=== PATIENT | male | born 1950 | race Caucasian/White ===

== ENCOUNTER 2017-07-24 08:54 | Emergency (ER) | payer BC ==
--- NOTE | 2017-07-24 11:06 | UC ---
Shoulder Pain HPI - HPI Summary HPI Summary: 67 y/o male presents to the urgent care c/o Pt states slipped on ice and fell on R shoulder last Tuesday07/17/17. Pt now here with pain in R neck/ shoulder area. - History of Current Complaint Chief Complaint: UCBackPain Stated Complaint: BACK INJURY Time Seen by Provider: 07/24/17 10:36 Pain Intensity: 8 - Allergies/Home Medications Allergies/Adverse Reactions: Allergies Allergy/AdvReac Type Severity Reaction Status Date / Time No Known Allergies Allergy Verified 07/24/17 09:16 PMH/Surg Hx/FS Hx/Imm Hx - Surgical History Surgical History: Yes Surgery Procedure, Year, and Place: Removal of 3 herniated discs and fusion. left tendon repair - Family History Known Family History: Positive: Hypertension - Social History Alcohol Use: Weekly Alcohol Amount: 3 beers/week Substance Use Type: None Smoking Status (MU): Never Smoked Tobacco Have You Smoked in the Last Year: No Physical Exam Vital Signs: Initial Vital Signs Temp 97.9 F 07/24/17 09:17 Pulse 61 07/24/17 09:17 Resp 16 07/24/17 09:17 BP 139/96 07/24/17 09:17 Pulse Ox 98 07/24/17 09:17 Shoulder Course/Dx - Differential Dx/Diagnosis Provider Diagnoses: 1- Acute shoulder pain s/p fall Discharge - Discharge Plan Referrals: Rafael Cruran MD [Primary Care Provider] -
--- NOTE | 2017-07-24 11:17 | RAD ---
INDICATION: Right shoulder pain. Fall. COMPARISON: None TECHNIQUE: Routine frontal, Y and axial views were obtained. FINDINGS: There are no acute bony findings. The glenohumeral joint is intact. There is moderate AC joint osteoarthritis. There are subtle findings of calcific tendinitis.. IMPRESSION: NO ACUTE BONY FINDINGS. AC JOINT OSTEOARTHRITIS. CALCIFIC TENDINITIS.
--- NOTE | 2017-07-24 11:18 | RAD ---
INDICATION: Right rib pain. Fall COMPARISON: None TECHNIQUE: Multiple views of the ribs were obtained. FINDINGS: Bones: There is no evidence of acute rib fracture. LUNGS: The lungs are clear. There is no pneumothorax. Pleural spaces: There is no evidence of hemothorax. Other: None IMPRESSION: NO ACUTE RIB FRACTURE.
[2017-07-24 11:21] VITALS: BP 142/80
== END 2017-07-24 11:40 | disposition home or self-care (01) ==
LOC: UCEAST 08:54
DX: M25.511 Pain in right shoulder (principal); W00.0XXA Fall on same level due to ice and snow, initial encounter; Y92.9 Unspecified place or not applicable
CPT/HCPCS: 99212; G0463

== ENCOUNTER 2018-02-22 12:00 | Emergency (ER) | payer BC ==
--- NOTE | 2018-02-22 12:22 | UC ---
Upper Extremity HPI - HPI Summary HPI Summary: A 67 y/o M presents to [facility] with c/o worsening LUE pain onset in October. Pain is located at his L shoulder and L elbow. In October, he was doing yard work and fell onto his back. He states his LUE was black and blue after that fall, but he didn t seek medical attention at that time. Associated sx: mild swelling to LUE. - History of Current Complaint Stated Complaint: L SHOULDER PAIN Time Seen by Provider: 02/22/18 12:15 Hx Obtained From: Patient Onset/Duration: Gradual Onset, Lasting Weeks, Still Present Severity Initially: Moderate Severity Currently: Moderate Pain Intensity: 7 Pain Scale Used: 0-10 Numeric Aggravating Factor(s): Movement Associated Signs And Symptoms: Positive: Swelling - LUE - Allergies/Home Medications Allergies/Adverse Reactions: Allergies Allergy/AdvReac Type Severity Reaction Status Date / Time No Known Allergies Allergy Verified 02/22/18 12:30 PMH/Surg Hx/FS Hx/Imm Hx Previously Healthy: No - pos: back pain Cardiovascular History: Hypertension, Atrial Fibrillation Other Neurological History: neg: dementia - Surgical History Surgical History: Yes Surgery Procedure, Year, and Place: Removal of 3 herniated discs and fusion. left tendon repair - Family History Known Family History: Positive: Hypertension, Diabetes Family History: Breast cancer - Social History Occupation: Retired Lives: Dormitory/Roommates - girlfriend Alcohol Use: Weekly Alcohol Amount: 3 beers/week Substance Use Type: None Smoking Status (MU): Never Smoked Tobacco Have You Smoked in the Last Year: No Review of Systems Constitutional: Other - neg: fever Musculoskeletal: Edema - mild, LUE, Other: - pos: L shoulder pain, L elbow pain All Other Systems Reviewed And Are Negative: Yes Physical Exam - Summary Physical Exam Summary: General: well-appearing, no pain distress Skin: warm, color reflects adequate perfusion, dry Head: normal Eyes: EOMI, SHERLYN ENT: normal Neck: supple, nontender Respiratory: CTA, breath sounds present Cardiovascular: RRR Abdomen: soft, nontender Bowel: present Musculoskeletal: Tender to palpation on upper margin of L scapula, swelling in L deltoid, tender to palpation of L humerus. Fingers, hands, wrists and elbows have FROM, strength, pulses and capillary refill. LUE extension of 60 degrees, abduction 40 degrees, internal rotation to L3. The RUE showed 180 degrees, 170 degrees, and to T8 respectively. Neurological: sensory/motor intact, A&O x3 Psychological: affect/mood appropriate Triage Information Reviewed: Yes Vital Signs Reviewed: Yes Diagnostics - Laboratory Diagnostic Studies Completed/Ordered: L HUMERUS XR as read by radiologist: REPORT AND IMPRESSION: #. Negative for humerus fracture or gross articular malalignment at the glenohumeral joint or elbow. #. Mild osteoarthritis at the AC joint and elbow joint noted. #. Unremarkable soft tissue contours. [facility] provider has reviewed this report. L SCAPULA XR as read by radiologist: REPORT AND IMPRESSION: #. No evidence for fracture of the scapula. Normal acromioclavicular and glenohumeral joint alignment. Moderate osteoarthritis at the acromioclavicular joint noted. Unremarkable soft tissue contours. [facility] provider has reviewed this report. L SHOULDER XR as read by radiologist: IMPRESSION: #. Moderate osteoarthritis of the acromioclavicular joint. [facility] provider has reviewed this report and agrees. Re-Evaluation - Re-Evaluation 1 Re-Evaluation Time: 13:42 Change: Unchanged Comment: Discussing XR results with pt. Pt voiced understanding. Upper Extremity Course/Dx - Course Course Of Treatment: BP noted and advised to follow up with PCP. Medications reviewed. Allergies noted. THE PATIENT HAS DECREASED ROM AND STRENGTH FROM AN INJURY IN OCTOBER 2017. DISCUSSED X-RAY RESULTS WITH THE PATIENT. HE WILL F/U WITH ORTHOPEDICS. - Differential Dx/Diagnosis Provider Diagnoses: left rotator cuff injury Discharge - Sign-Out/Discharge Documenting (check all that apply): Patient Departure - DC All imaging exams completed and their final reports reviewed: Yes - Discharge Plan Condition: Stable Disposition: HOME Patient Education Materials: Rotator Cuff Injury (ED), Shoulder Pain (ED) Referrals: Chao Haro MD [Medical Doctor] - Rafael Curran MD [Primary Care Provider] - Additional Instructions: FOLLOW UP WITH ORTHOPEDICS, DR HARO. GET RECHECKED FOR ANY WORSENING OF YOUR CONDITION OR QUESTIONS OR CONCERNS. Your blood pressure was elevated during todays visit; please follow up with your primary care provider within a week for further evaluation. - Billing Disposition and Condition Condition: STABLE Disposition: Home - Attestation Statements Document Initiated by Scribe: Yes Documenting Scribe: [facility] Provider For Whom Scribe is Documenting (Include Credential): Bo Kaufman MD Scribe Attestation: I, Dillon Nicolas, scribed for Bo Kaufman MD on 02/22/18 at 1413. Scribe Documentation Reviewed: Yes Provider Attestation: The documentation as recorded by the Dillon castañeda accurately reflects the service I personally performed and the decisions made by me, Bo Kaufman MD
[2018-02-22 12:29] VITALS: BP 160/82
--- NOTE | 2018-02-22 13:29 | RAD ---
Indication: LEFT shoulder/upper extremity pain and decreased range of motion post fall in October 2017. Comparison: No relevant prior exams available on the [facility] PACS for comparison. Technique: AP and lateral views LEFT humerus. REPORT AND IMPRESSION: #. Negative for humerus fracture or gross articular malalignment at the glenohumeral joint or elbow. #. Mild osteoarthritis at the AC joint and elbow joint noted. #. Unremarkable soft tissue contours.
--- NOTE | 2018-02-22 13:32 | RAD ---
Indication: LEFT shoulder and upper extremity pain and decreased range of motion post fall in October 2017. Comparison: LEFT humerus and shoulder exams of the same date. Technique: AP and scapular Y views LEFT scapula. REPORT AND IMPRESSION: #. No evidence for fracture of the scapula. Normal acromioclavicular and glenohumeral joint alignment. Moderate osteoarthritis at the acromioclavicular joint noted. Unremarkable soft tissue contours.
--- NOTE | 2018-02-22 13:33 | RAD ---
Indication: LEFT shoulder pain and decreased range of motion following injury /fall in October 2017. Comparison: LEFT scapula and humerus exams of the same date. Technique: Internal rotation AP, external rotation Grashey, scapular Y, axillary views LEFT shoulder Report: Negative for fracture. Normal acromioclavicular and glenohumeral joint alignment. Moderate osteophytosis and associated subchondral sclerosis at the acromioclavicular joint. Negative for calcific tendinopathy. Unremarkable soft tissue contours. IMPRESSION: #. Moderate osteoarthritis of the acromioclavicular joint.
== END 2018-02-22 13:53 | disposition home or self-care (01) ==
LOC: UCEAST 12:00
DX: S46.002A Unspecified injury of muscle(s) and tendon(s) of the rotator cuff of left shoulder, initial encounter (principal); I10 Essential (primary) hypertension; W19.XXXA Unspecified fall, initial encounter; Y92.096 Garden or yard of other non-institutional residence as the place of occurrence of the external cause
CPT/HCPCS: 99211; G0463

== ENCOUNTER 2019-01-26 08:00 | Emergency (ER) | payer BC ==
[2019-01-26 08:16] VITALS: BP 151/86
--- NOTE | 2019-01-26 09:15 | UC ---
Skin Complaint HPI - HPI Summary HPI Summary: 1. PATIENT'S GIRLFRIEND NOTICED A LARGE RED RASH ON PATIENT'S LEFT FLANK A COUPLE OF DAYS AGO AND NOTICED A TICK IN THE SAME AREA. PATIENT DENIES ANY OTHER SYMPTOMS. NO HEADACHE, FEVER, BODY ACHES/JOINT PAINS. 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 STATES HE HAS HAD MULTIPLE TICK BITES IN THE PAST. 2. HAS HAD A NONTENDER LUMP ON HIS RIGHT FOOT FOR SEVERAL WEEKS. STATES IT ONLY BOTHERS HIM WHEN HIS SHOES PRESS ON IT. DENIES ANY INJURY. - History of Current Complaint Chief Complaint: UCSkin Time Seen by Provider: 01/26/19 08:45 Stated Complaint: TICK BITES Hx Obtained From: Patient Onset/Duration: Sudden Onset, Lasting Days, Still Present Timing: Constant Onset Severity: Mild Current Severity: Mild Pain Intensity: 7 Pain Scale Used: 0-10 Numeric Character: Redness, Painful Aggravating Factor(s): Touch Alleviating Factor(s): Nothing - Allergy/Home Medications Allergies/Adverse Reactions: Allergies Allergy/AdvReac Type Severity Reaction Status Date / Time No Known Allergies Allergy Verified 01/26/19 08:16 PMH/Surg Hx/FS Hx/Imm Hx Cardiovascular History: Hypertension, Atrial Fibrillation - Surgical History Surgical History: Yes Surgery Procedure, Year, and Place: Removal of 3 herniated discs and fusion. left tendon repair - Family History Known Family History: Positive: Hypertension, Diabetes Family History: Breast cancer - Social History Alcohol Use: Weekly Alcohol Amount: 3 beers/week Substance Use Type: None Smoking Status (MU): Never Smoked Tobacco Have You Smoked in the Last Year: No Review of Systems All Other Systems Reviewed And Are Negative: Yes Constitutional: Positive: Negative Skin: Positive: Rash Respiratory: Positive: Negative Cardiovascular: Positive: Negative Gastrointestinal: Positive: Negative Musculoskeletal: Positive: Other: - GROWTH ON RIGHT FOOT Physical Exam Triage Information Reviewed: Yes Appearance: Well-Appearing, No Pain Distress, Well-Nourished Vital Signs: Initial Vital Signs Temp 97.2 F 01/26/19 08:08 Pulse 95 01/26/19 08:08 Resp 12 01/26/19 08:08 BP 151/86 01/26/19 08:08 Pulse Ox 97 01/26/19 08:08 Vital Signs Reviewed: Yes Eyes: Positive: Conjunctiva Clear ENT: Positive: Hearing grossly normal Neck: Positive: Supple Respiratory: Positive: No respiratory distress, No accessory muscle use Cardiovascular: Positive: Pulses Normal Abdomen Description: Positive: Soft Musculoskeletal: Positive: ROM Intact, Other: - 2CM RAISED, FIRM LESION DORSAL ASPECT RIGHT FOOT IN BETWEEN 4TH AND 5TH METATARSALS Neurological: Positive: Alert Psychological: Positive: Age Appropriate Behavior Skin: Positive: Rashes - 15CM X 6CM ERYTHEMATOUS OVAL LESION LEFT FLANK. TENDER. Diagnostics - Radiology RIGHT FOOT XRAYS Radiology Interpretation Completed By: Radiologist Summary of Radiographic Findings: 1. CHRONIC APPEARING FRACTURE OF THE PROXIMAL PHALANX OF THE FIFTH DIGIT. 2. OSTEOARTHRITIS. 3. NO RADIOGRAPHIC ABNORMALITY TO CORRESPOND TO THE HISTORY OF CYSTIC LESION OF THE TOP OF THE FOOT. A NEGATIVE REPORT SHOULD NOT PRECLUDE OR DELAY THE EVALUATION OF A CLINICALLY SUSPICIOUS PALPABLE ABNORMALITY Course/Dx - Course Course Of Treatment: RASH IS CONSISTENT IN APPEARANCE WITH AN EM RASH HOWEVER PATIENT HAS NO OTHER SYMPTOMS OF LYME DISEASE. MAY BE A STRAIGHTFORWARD CELLULITIS HOWEVER GIVEN HIS HIGH RISK DAILY ACTIVITIES AND HISTORY OF MULTIPLE TICK BITES WILL GO AHEAD AND COVER WITH DOXYCYCLINE. FOOT X-RAY DOES NOT SHOW ANY ABNORMALITY IN THE AREA OF THE LESION. CLINICALLY IT APPEARS TO BE A GANGLION CYST. HAVE ADVISED PATIENT CALL ORTHOPEDICS TO DISCUSS TREATMENT OPTIONS. - Diagnoses Provider Diagnosis: Ganglion cyst of right foot, Cellulitis of mid back region Discharge - Sign-Out/Discharge Documenting (check all that apply): Patient Departure All imaging exams completed and their final reports reviewed: Yes - Discharge Plan Condition: Stable Disposition: HOME Prescriptions: Doxycycline Monohydrate 1 cap PO BID #28 cap Patient Education Materials: Cellulitis (ED), Ganglion Cysts (ED) Referrals: Dimple Landeros MD [Medical Doctor] - 1 Week Rafael Curran MD [Primary Care Provider] - If Needed Additional Instructions: THE RASH ON YOUR BACK MAY BE THE THE LYME DISEASE RASH (ERYTHEMA MIGRANS). WHILE YOU DO NOT HAVE ANY OTHER SYMPTOMS SUGGESTIVE OF LYME DISEASE, WITH YOUR HIGH RISK JOB ACTIVITIES WILL GO AHEAD AND COVER WITH DOXYCYCLINE. LYME DISEASE: You are suspected of having Lyme disease. Further testing may be necessary to confirm the diagnosis. Lyme disease is an infection spread through the bite of a deer tick. Symptoms include rash, fever, fatigue, joint swelling, and aches. Lyme disease can be treated with antibiotics. It is important that you take the entire course of medication. Call the physician if you develop severe headache, stiff neck, paralysis or "drooping" of either side of the face, or a worsening of any other symptom. The majority of patients with early Lyme disease who receive appropriate antibiotic therapy have complete resolution of the signs and symptoms of infection within 20 days and, in one trial, erythema migrans (the rash) and its associated symptoms resolved in a mean of five to six days. Patients who are more systemically ill at the beginning of treatment may take longer to recover. Some patients have mild subjective symptoms, such as headache, musculoskeletal pain, arthralgia, or fatigue, that persist for weeks to months after treatment. These subjective findings often resolve spontaneously, usually within six months , without further antibiotic therapy; they are not due to ongoing active Lyme disease. Almost all patients who have a satisfactory response to antibiotic therapy do well over the technical communicator. DOXYCYCLINE WILL MAKE YOU MORE SENSITIVE TO UV RAYS SO BE SURE TO TAKE EXTRA SUN PRECAUTIONS WHILE YOU ARE ON THIS MEDICATION. THE BUMP ON YOUR FOOT IS LIKELY A GANGLION CYST. CALL ORTHO TO SCHEDULE AN APPT TO DISCUSS TREATMENT OPTIONS. - Billing Disposition and Condition Condition: STABLE Disposition: Home
== END 2019-01-26 10:26 | disposition home or self-care (01) ==
LOC: UCEAST 08:00
DX: L03.312 Cellulitis of back [any part except buttock and flank] (principal); M67.471 Ganglion, right ankle and foot
CPT/HCPCS: 99212; G0463

== ENCOUNTER → 2019-05-14 09:44 | Day surgery (SDC) | payer MEDICARE ==
[~2019-05-14 09:44] MED LIST: Buffered Lidocaine 1% SYRIN* 1 ML/SYRINGE INTRADERM ONE; Lactated Ringers 1000 ML Bag* 1,000 ML IV SCH; Sodium Citrate/Citric Acid* 15 ML UDC ONE; Sodium Citrate/Citric Acid* 15 ML UDC PO ONE; ceFAZolin 1 GM ADVAN(*) 1 GM ADDV.VIAL IVPB ONE; ceFAZolin 2 GM in NS PREMIX(*) 0 GM/0 ML BAG IVPB ONE
[2019-05-14 10:31] VITALS: BP 160/95
== END | disposition home or self-care (01) ==
LOC: OR 09:44
PROVIDERS: ATTEND Orthopaedic Surgery
DX: M79.5 Residual foreign body in soft tissue (principal); Z53.9 Procedure and treatment not carried out, unspecified reason; I48.91 Unspecified atrial fibrillation
CPT/HCPCS: A9270-GY; J0690